=== PATIENT | male | born 2000 | race Caucasian/White ===

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

== ENCOUNTER 2021-08-10 17:17 | Emergency (ER) | payer OTHER ==
[~2021-08-10] VITALS: Ht 177.8 cm; Wt 79.8 kg
[2021-08-10] MEDS ORDERED: ABILIFY5 MG PO (17:27)
[2021-08-10] MEDS ORDERED: CEPH500 PO (17:27)
[2021-08-10] MEDS ORDERED: RISP1 PO (17:27)
== END 2021-08-10 17:28 | disposition home or self-care (01) ==
LOC: ER 17:17
DX: S20.372A Other superficial bite of left front wall of thorax, initial encounter (principal); W57.XXXA Bitten or stung by nonvenomous insect and other nonvenomous arthropods, initial encounter; F17.200 Nicotine dependence, unspecified, uncomplicated; Z79.899 Other long term (current) drug therapy
CPT/HCPCS: 99282

== ENCOUNTER 2022-08-19 18:14 | Emergency (ER) | payer OTHER ==
[~2022-08-19] VITALS: Ht 175.3 cm; Wt 66.7 kg
[~2022-08-19 18:14] MED LIST changes: +ABILIFY5 MG PO; +RISP1 PO
[2022-08-19 18:20] VITALS: BP 119/69
== END 2022-08-19 18:34 | disposition home or self-care (01) ==
LOC: ER 18:14
DX: S01.01XA Laceration without foreign body of scalp, initial encounter (principal); F17.210 Nicotine dependence, cigarettes, uncomplicated; W18.09XA Striking against other object with subsequent fall, initial encounter; Z79.899 Other long term (current) drug therapy
CPT/HCPCS: 12001; 99283-25

== ENCOUNTER 2022-09-18 16:41 | Emergency (ER) | payer OTHER ==
[~2022-09-18] VITALS: Ht 175.3 cm; Wt 60.8 kg
[2022-09-18 16:44] VITALS: BP 127/75
== END 2022-09-18 18:12 | disposition home or self-care (01) ==
LOC: ER 16:41
DX: S00.01XA Abrasion of scalp, initial encounter (principal); E86.0 Dehydration; F17.210 Nicotine dependence, cigarettes, uncomplicated; W18.30XA Fall on same level, unspecified, initial encounter
CPT/HCPCS: 99282

== ENCOUNTER 2022-12-08 06:48 | Observation (INO) | payer OTHER ==
[~2022-12-08] VITALS: Ht 177.8 cm; Wt 60.8 kg
[2022-12-08 08:09] LABS: BASOPHILS ABSOLUTE AUTO 0.01 K/mm3 (0.00-0.23); BASOPHILS PERCENT AUTO 0 % (0-2); EOSINOPHILS ABSOLUTE AUTO 0.02 K/mm3 (0.00-0.68); EOSINOPHILS PERCENT AUTO 0 % (0-6); Hematocrit 39.3 % (37.0-53.0); Hemoglobin 13.5 g/dL (13.5-17.5); IMMATURE GRAN ABSOLUTE AUTO 0.04 K/mm3 (0.00-0.10); IMMATURE GRAN PERCENT AUTO 0 % (0-1); LYMPHOCYTES ABSOLUTE AUTO 3.25 K/mm3 (0.84-5.20); LYMPHOCYTES PERCENT AUTO 25 % (21-46); MONOCYTES ABSOLUTE AUTO 1.13 K/mm3 (0.16-1.47); MONOCYTES PERCENT AUTO 9 % (4-13); Mean Corpuscular HGB 29.9 pg (26.0-34.0); Mean Corpuscular HGB Conc 34.4 g/dL (31.5-36.5); Mean Corpuscular Volume 87 fL (80-100); Mean Platelet Volume 11.6 fL (9.1-12.4); NEUTROPHILS ABSOLUTE AUTO 8.66 K/mm3 (1.96-9.15); NEUTROPHILS PERCENT AUTO 66 % (41-73); Platelet Count 190 K/mm3 (150-400); RDW Coefficient Variation 12.5 % (11.7-14.2); RDW Standard Deviation 39.8 fL (35.1-46.3); Red Blood Cell Count 4.51 M/mm3 (4.30-5.90); White Blood Cell Count 13.11 K/mm3 (4.00-11.30)
[2022-12-08] MEDS ORDERED: SERT100 (08:10)
[2022-12-08 08:11] LABS: Source, Urine Clean Catch
[2022-12-08 08:15] LABS: Appearance, Urine Cloudy (Clear); Bilirubin, Urine Neg (Neg); Blood, Urine Neg (Neg); Color, Urine Yellow (P-Yellow); Glucose Qualitative, Urine Neg (Neg); Ketones, Urine Neg (Neg); Leukocyte Esterase, Urine Neg (Neg); Nitrite, Urine Neg (Neg); Protein, Urine 1+ (Neg); Specific Gravity, Urine 1.015 (1.003-1.022); Urobilinogen, Urine 1+ (Normal); pH, Urine 6.5 (5.0-8.0)
[2022-12-08 08:29] LABS: U Amphetamine Screen DETECTED; U Barbituate Screen Not Detected; U Benzodiazapine Screen Not Detected; U Buprenorphine Screen Not Detected; U Cannabinoids Screen DETECTED; U Cocaine Screen Not Detected; U Methadone Screen Not Detected; U Methamphetamine Screen DETECTED; U Opiates Screen Not Detected; U Oxycodone Screen Not Detected; U Phencyclidine Screen Not Detected; U Propoxyphene Screen Not Detected
[2022-12-08 08:35] LABS: Mucus Light (0-Heavy)
[2022-12-08 08:36] LABS: Amorphous Heavy (0-Heavy); Bacteria Rare /hpf; Red Blood Cells, Urine 0-2 /hpf (0-2); Squamous Epithelial Cells Not Seen /hpf (Few); White Blood Cells, Urine 0-2 /hpf (0-5)
[2022-12-08 08:37] LABS: Yeast/Fungi Urine Rare /hpf
[2022-12-08 08:51] LABS: Ethanol (Alcohol), Blood, Med <3 mg/dL; Salicylate 2.5 mg/dL (2.8-20.0)
[2022-12-08 08:56] LABS: Alanine Aminotransfer (ALT/SGP 29 U/L (12-78); Albumin, Blood 4.3 g/dL (3.4-5.0); Albumin/Globulin Ratio 1.3 (0.8-1.8); Alk Phos 108 U/L (50-136); Anion Gap 3 mmol/L (6-16); Aspartate Aminotrans (AST/SGOT 32 U/L (12-37); Bilirubin, Total 0.6 mg/dL (0.1-1.0); Blood Urea Nitrogen 15 mg/dL (8-24); Bun/Creatinine Ratio 17.1 (12.0-20.0); CO2, Blood 30 mmol/L (21-32); Calcium, Blood 9.1 mg/dL (8.5-10.1); Chloride, Blood 107 mmol/L (98-108); Creatinine, Blood 0.88 mg/dL (0.60-1.20); Globulin, Blood 3.2 g/dL (2.2-4.0); Glomerular Filtration Rate 125 (60-); Glucose, Blood 102 mg/dL (70-99); Potassium, Blood 3.9 mmol/L (3.5-5.5); Sodium, Blood 140 mmol/L (136-145); Total Protein, Blood 7.5 g/dL (6.4-8.2)
[2022-12-08 08:57] LABS: Acetaminophen, Random <2.0 ug/mL (10.0-30.0)
[2022-12-08 14:12] LABS: Influenza A, PCR NEGATIVE (NEGATIVE); Influenza B, PCR NEGATIVE (NEGATIVE); Resp Syncytial Virus, PCR NEGATIVE (NEGATIVE); SARS-Cov-2 (COVID-19) PCR, MMC NEGATIVE (NEGATIVE)
[2022-12-11] MEDS ORDERED: SERT50 PO (10:21)
[2022-12-11] MEDS ORDERED: RISP2 PO (10:21)
[2022-12-11] MEDS ORDERED: HYDHCL25 PO (10:22)
[2022-12-11 10:24] VITALS: BP 108/71
== END 2022-12-11 07:54 | disposition home or self-care (01) ==
LOC: ER 06:48 → EOR 06:49
PROVIDERS: Student in an Organized Health Care Education/Training Program; ADMIT Emergency Medicine
DX: F20.0 Paranoid schizophrenia (principal); F15.10 Other stimulant abuse, uncomplicated; F12.10 Cannabis abuse, uncomplicated; R45.851 Suicidal ideations; F17.210 Nicotine dependence, cigarettes, uncomplicated
CPT/HCPCS: 0241U; 80053; 81001; 84436; 84443; 85025; 86592; 99285-25; A9270; G0378; G0480

== ENCOUNTER 2023-02-20 14:20 | Emergency (ER) | payer OTHER ==
[~2023-02-20] VITALS: Ht 177.8 cm; Wt 68.0 kg
[~2023-02-20 14:20] MED LIST changes: +HYDHCL25 PO; +RISP2 PO; +SERT100; +SERT50 PO
[2023-02-20 16:45] VITALS: BP 123/75
[2023-02-20] MEDS ORDERED: Percocet 5-3251 EACH PO (17:12)
[2023-02-20] MEDS ORDERED: Cephalexin500 M1 PO (17:12)
== END 2023-02-20 17:23 | disposition home or self-care (01) ==
LOC: ER 14:20
DX: S61.442A Puncture wound with foreign body of left hand, initial encounter (principal); S62.623B Displaced fracture of middle phalanx of left middle finger, initial encounter for open fracture; S62.633B Displaced fracture of distal phalanx of left middle finger, initial encounter for open fracture; F20.9 Schizophrenia, unspecified; F90.9 Attention-deficit hyperactivity disorder, unspecified type; F31.9 Bipolar disorder, unspecified; F17.210 Nicotine dependence, cigarettes, uncomplicated; Z79.899 Other long term (current) drug therapy; W34.00XA Accidental discharge from unspecified firearms or gun, initial encounter
CPT/HCPCS: 29125; 73130; 90471; 90714; 96365-59; 96375-59; 99285-25; J0690; J2405; J3010

== ENCOUNTER 2024-05-15 23:27 | Emergency (ER) | payer OTHER ==
[~2024-05-15] VITALS: Ht 175.3 cm; Wt 70.3 kg
[~2024-05-15 23:27] MED LIST changes: +Cephalexin500 M1 PO; +Percocet 5-3251 EACH PO
[2024-05-15 23:48] VITALS: BP 121/54
[2024-05-16] MEDS ORDERED: Pantoprazole Sodium 40 MG Tab PO ONE (00:05)
[2024-05-16] MEDS ORDERED: Protonix40 MG PO (00:25)
== END 2024-05-16 00:37 | disposition home or self-care (01) ==
LOC: ER 23:27
DX: K21.9 Gastro-esophageal reflux disease without esophagitis (principal); H53.8 Other visual disturbances; Z79.2 Long term (current) use of antibiotics; Z79.899 Other long term (current) drug therapy; Z87.891 Personal history of nicotine dependence
CPT/HCPCS: 71045; 82947; 99284-25; A9270

== ENCOUNTER 2024-05-19 20:48 | Emergency (ER) | payer OTHER ==
[~2024-05-19] VITALS: Ht 177.8 cm; Wt 66.2 kg
[~2024-05-19 20:48] MED LIST changes: +Protonix40 MG PO
[2024-05-19 21:27] VITALS: BP 117/75
== END 2024-05-20 | disposition left against medical advice (07) ==
LOC: ER 20:48
DX: R07.81 Pleurodynia (principal); Z53.21 Procedure and treatment not carried out due to patient leaving prior to being seen by health care provider
CPT/HCPCS: 71046; 99281-25

== ENCOUNTER → 2024-05-31 | Outpatient (CLI) | payer OTHER ==
[2024-05-31 17:22] LABS: BASOPHILS ABSOLUTE AUTO 0.02 K/mm3 (0.00-0.23); BASOPHILS PERCENT AUTO 0 % (0-2); EOSINOPHILS ABSOLUTE AUTO 0.01 K/mm3 (0.00-0.68); EOSINOPHILS PERCENT AUTO 0 % (0-6); Hematocrit 40.7 % (37.0-53.0); Hemoglobin 13.5 g/dL (13.5-17.5); IMMATURE GRAN ABSOLUTE AUTO 0.01 K/mm3 (0.00-0.10); IMMATURE GRAN PERCENT AUTO 0 % (0-1); LYMPHOCYTES ABSOLUTE AUTO 1.88 K/mm3 (0.84-5.20); LYMPHOCYTES PERCENT AUTO 34 % (21-46); MONOCYTES ABSOLUTE AUTO 0.31 K/mm3 (0.16-1.47); MONOCYTES PERCENT AUTO 6 % (4-13); Mean Corpuscular HGB 28.7 pg (26.0-34.0); Mean Corpuscular HGB Conc 33.2 g/dL (31.5-36.5); Mean Corpuscular Volume 87 fL (80-100); Mean Platelet Volume 11.2 fL (9.1-12.4); NEUTROPHILS ABSOLUTE AUTO 3.34 K/mm3 (1.96-9.15); NEUTROPHILS PERCENT AUTO 60 % (41-73); Platelet Count 272 K/mm3 (150-400); RDW Standard Deviation 40.9 fL (35.1-46.3); White Blood Cell Count 5.57 K/mm3 (4.00-11.30)
[2024-05-31 18:43] LABS: Chlamydia Trachomatis Urine NOT DETECTED (NOT DETECT); Neisseria Gonorrhoea Urine NOT DETECTED (NOT DETECT)
[2024-05-31 19:34] LABS: Alanine Aminotransfer (ALT/SGP 23 U/L (12-78); Albumin, Blood 4.3 g/dL (3.4-5.0); Albumin/Globulin Ratio 1.3 (0.8-1.8); Alk Phos 74 U/L (50-136); Anion Gap 9 mmol/L (3-11); Aspartate Aminotrans (AST/SGOT 17 U/L (12-37); Bilirubin, Total 0.8 mg/dL (0.1-1.0); Blood Urea Nitrogen 11 mg/dL (8-24); CHOL/HDL RATIO 2.9; CO2, Blood 27 mmol/L (21-32); Calcium, Blood 9.4 mg/dL (8.5-10.1); Chloride, Blood 105 mmol/L (98-108); Cholesterol 160 mg/dL (50-200); Globulin, Blood 3.3 g/dL (2.2-4.0); Glucose, Blood 91 mg/dL (70-99); HDL Cholesterol 55 mg/dL (>39); Iron Serum 97 ug/dL (65-175); LDL/HDL RATIO 1.6; Low Density Lipoprotein Chol 90 mg/dL (0-110); PSA, %Free 16.4 %; PSA, Free 0.096 ng/mL; Percent Saturation 28.6 % (20.0-50.0); Potassium, Blood 4.2 mmol/L (3.5-5.5); Prostate Specific Antigen 0.584 ng/mL (0.000-4.000); Sodium, Blood 137 mmol/L (136-145); Total Iron Binding Capacity 339 ug/dL (250-450); Total Protein, Blood 7.6 g/dL (6.4-8.2); Triglycerides 75 mg/dL (30-140); Very Low Density Lipoprot Chol 15 mg/dL (6-28)
[2024-05-31 19:38] LABS: Bun/Creatinine Ratio 14.7 (12.0-20.0); Creatinine, Blood 0.75 mg/dL (0.60-1.20); Glomerular Filtration Rate 131 (60-); Thyroid Stimulating Hormone 0.787 uIU/mL (0.360-4.800)
[2024-06-02 09:57] LABS: HEPATITIS C AB CIA INTERP Negative (Negative); HEPATITIS C ANTIBODY CIA INDEX 0.06 IV
[2024-06-02 10:04] LABS: HIV 1,2 COMBO ANTIGEN/ANTIBODY Negative (Negative)
== END ==
LOC: LAB SHORT 12:10 → LAB 12:10
PROVIDERS: Nurse Practitioner Family
DX: Z11.3 Encounter for screening for infections with a predominantly sexual mode of transmission (principal); Z11.4 Encounter for screening for human immunodeficiency virus [HIV]; Z11.59 Encounter for screening for other viral diseases; R16.1 Splenomegaly, not elsewhere classified; Z79.899 Other long term (current) drug therapy
CPT/HCPCS: 80053; 80061; 82306; 83036; 83540; 83550; 84153; 84154; 84443; 85025; 86592; 86803; 87389; 87491; 87591

== ENCOUNTER 2024-09-05 02:15 | Observation (INO) | payer OTHER ==
[~2024-09-05] VITALS: Ht 172.7 cm; Wt 68.0 kg
[2024-09-05 03:12] LABS: BASOPHILS ABSOLUTE AUTO 0.04 K/mm3 (0.00-0.23); BASOPHILS PERCENT AUTO 1 % (0-2); EOSINOPHILS PERCENT AUTO 1 % (0-6); Hematocrit 38.4 % (37.0-53.0); Hemoglobin 12.8 g/dL (13.5-17.5); IMMATURE GRAN ABSOLUTE AUTO 0.01 K/mm3 (0.00-0.10); IMMATURE GRAN PERCENT AUTO 0 % (0-1); LYMPHOCYTES ABSOLUTE AUTO 3.36 K/mm3 (0.84-5.20); LYMPHOCYTES PERCENT AUTO 42 % (21-46); MONOCYTES ABSOLUTE AUTO 0.65 K/mm3 (0.16-1.47); MONOCYTES PERCENT AUTO 8 % (4-13); Mean Corpuscular HGB 29.2 pg (26.0-34.0); Mean Corpuscular HGB Conc 33.3 g/dL (31.5-36.5); Mean Corpuscular Volume 88 fL (80-100); Mean Platelet Volume 10.6 fL (9.1-12.4); NEUTROPHILS PERCENT AUTO 48 % (41-73); Platelet Count 232 K/mm3 (150-400); RDW Coefficient Variation 13.1 % (11.7-14.2); RDW Standard Deviation 41.9 fL (35.1-46.3); Red Blood Cell Count 4.38 M/mm3 (4.30-5.90); White Blood Cell Count 7.96 K/mm3 (4.00-11.30)
[2024-09-05 03:30] LABS: Ethanol (Alcohol), Blood, Med <3 mg/dL; Salicylate <1.7 mg/dL (2.8-20.0)
[2024-09-05 03:31] LABS: Alanine Aminotransfer (ALT/SGP 27 U/L (12-78); Albumin, Blood 4.3 g/dL (3.4-5.0); Albumin/Globulin Ratio 1.3 (0.8-1.8); Alk Phos 82 U/L (50-136); Anion Gap 7 mmol/L (3-11); Aspartate Aminotrans (AST/SGOT 25 U/L (12-37); Bilirubin, Total 0.6 mg/dL (0.1-1.0); Blood Urea Nitrogen 16 mg/dL (8-24); Bun/Creatinine Ratio 18.9 (12.0-20.0); CO2, Blood 29 mmol/L (21-32); Calcium, Blood 9.1 mg/dL (8.5-10.1); Chloride, Blood 103 mmol/L (98-108); Creatinine, Blood 0.85 mg/dL (0.60-1.20); Globulin, Blood 3.4 g/dL (2.2-4.0); Glomerular Filtration Rate 126 (60-); Glucose, Blood 95 mg/dL (70-99); Potassium, Blood 3.7 mmol/L (3.5-5.5); Sodium, Blood 135 mmol/L (136-145); Total Protein, Blood 7.7 g/dL (6.4-8.2)
[2024-09-05 03:36] LABS: Acetaminophen, Random <2.0 ug/mL (10.0-30.0)
[2024-09-05] MEDS ORDERED: OLANZapine 5 MG Tab PO ONE (04:00)
[2024-09-05 04:56] LABS: Source, Urine Clean Catch
[2024-09-05 05:03] LABS: Bilirubin, Urine Neg (Neg); Blood, Urine Neg (Neg); Glucose Qualitative, Urine Neg (Neg); Ketones, Urine Neg (Neg); Leukocyte Esterase, Urine Neg (Neg); Nitrite, Urine Neg (Neg); Protein, Urine Neg (Neg); Urobilinogen, Urine NORM (Normal)
[2024-09-05 05:18] LABS: Appearance, Urine Clear (Clear); Color, Urine Yellow (P-Yellow)
[2024-09-05 05:20] LABS: U Amphetamine Screen DETECTED; U Barbituate Screen Not Detected; U Benzodiazapine Screen Not Detected; U Buprenorphine Screen Not Detected; U Cannabinoids Screen DETECTED; U Cocaine Screen Not Detected; U Methadone Screen Not Detected; U Methamphetamine Screen DETECTED; U Opiates Screen Not Detected; U Oxycodone Screen Not Detected; U Phencyclidine Screen Not Detected
[2024-09-05 13:28] VITALS: BP 135/65
== END 2024-09-05 14:52 | disposition other institution (70) ==
LOC: ER 02:15 → EOR 02:16
PROVIDERS: ADMIT Emergency Medicine
DX: R45.851 Suicidal ideations (principal); F25.0 Schizoaffective disorder, bipolar type; F19.10 Other psychoactive substance abuse, uncomplicated; F17.200 Nicotine dependence, unspecified, uncomplicated; Z59.00 Homelessness unspecified
CPT/HCPCS: 36415; 80053; 80320; 81003; 85025; 99285; A9270; G0378; G0480

== ENCOUNTER 2024-09-05 09:54 | Inpatient (IN) | payer OTHER ==
[~2024-09-05] VITALS: Wt 62.7 kg
[2024-09-05] MEDS ORDERED: Polyethylene Glycol 3350 17 gm PO PRN (10:45)
[2024-09-05] MEDS ORDERED: Aluminum Hydroxide 320MG/5ML 473 ML PO PRN (10:45)
[2024-09-05] MEDS ORDERED: Ondansetron 4 MG SoluTab MM PRN (10:45)
[2024-09-05 15:41] VITALS: BP 106/78
[2024-09-05 16:22] VITALS: BP 106/78
--- NOTE | 2024-09-05 16:45 | NUR ---
MASTER TREATMENT PLAN REVIEWED MASTER TREATMENT PLAN W/ PT, PT VISUALLY LAID EYES ON PLAN. SIGNATURE AT END W/ OK FROM PT.
--- NOTE | 2024-09-05 17:29 | NUR ---
SHIFT SUMMARY PT DENIES SI, HI, AVTH. STATED THAT HE HAS NOT FELT ANY SI SINCE ED. PT UPSET D/T BEING ON A HOLD, BUT WAS REDIRECTABLE. PLEASANT AND COOPERATIVE. DISCUSSED W/ PT HOW THIS STAY MAY BE BENEFICIAL AND PT APPEARED TO BE INTO THE IDEA OF STAYING LONG DR RECOMMENDS. PT STATES THAT THIS RECENT EVENT'S SI WAS NOT D/T HIM WANTING TO , BUT WERE "INTRUSIVE THOUGHTS". PT SLEEPING/RESTING QUIETLY AT THIS TIME.
--- NOTE | 2024-09-06 05:58 | NUR ---
SHIFT SUMMARY Pt was asleep in bed at the beginning of the shirt. During HS med pass, real estate underwriter conducted a limited assessment. Pt is A&O, calm, minimally cooperative with assessment, eye contact is limited. Pt denies SI and HI. No S/Sx of hallucinations. Pt appears very depressed, affect is blunted. Pt reported no pain. Pt did ask for PRN melatonin and trazodone during HS med pass. Pt refused evening snack and remained in room for the entire shift. Staff continues q15m safety check per unit protocol.
[2024-09-06 08:23] LABS: CHOL/HDL RATIO 2.3; Cholesterol 122 mg/dL (50-200); HDL Cholesterol 54 mg/dL (>39); LDL/HDL RATIO 1.1; Low Density Lipoprotein Chol 57 mg/dL (0-110); Triglycerides 55 mg/dL (30-140); Very Low Density Lipoprot Chol 11 mg/dL (6-28)
[2024-09-06 08:51] VITALS: BP 112/69
[2024-09-06] MEDS ORDERED: Multivitamins 1 Tab PO SCH (09:00)
--- NOTE | 2024-09-06 12:06 | NUR ---
PT ALERT, ORIENTED AND COOPERATIVE WITH CARE. COMPLIANT WITH MEDICATIONS. PT DENIES SI, HI AND AVH. PT STATES, "I'M NOT SUICIDAL, I AM READY TO GO HOME". DISCUSSED PATIENTS HOLD STATUS AND ENCOURAGED PT TO SPEAK WITH PROVIDER ABOUT HIS REQUEST TO GO HOME.
--- NOTE | 2024-09-06 17:21 | NUR ---
SHIFT SUMMARY: NO ACUTE CHANGES THIS SHIFT. PT COMPLIANT WITH MEDICATIONS AND CARE. PT WAS PRESENT ON THE UNIT. SPENT TIME IN THE DAY ROOM WATCHING TV, TALKING WITH PEERS AND STAFF.
[2024-09-06 20:33] VITALS: BP 102/61
--- NOTE | 2024-09-07 06:12 | NUR ---
SHIFT SUMMARY Pt is A&O, calm, cooperative, eye contact was limited. Pt s stated mood is okay but appears depressed, affect is flat. Pt denies SI, HI, and hallucinations. Pt also denies pain or other medical issues. Pt remained in his room for most of the evening, but did come the dining room for evening snack. PRN melatonin and trazodone were given with HS meds. Staff continues q15m safety check per unit protocol.
[2024-09-07 07:17] VITALS: BP 101/62
--- NOTE | 2024-09-07 17:18 | NUR ---
SHIFT SUMMARY PT A/O X4; DENIES SI, HI, AVTH. PT NEEDS ENCOURAGEMENT TO ATTEND GROUP BUT DID ATTEND WHEN REMINDED. NO ACUTE CHANGES THIS SHIFT. HE CONTINUES TO BE MONITORED VIA Q15 ROUNDING FOR SAFETY AND WELLNESS.
[2024-09-07 20:37] VITALS: BP 107/68
--- NOTE | 2024-09-08 04:32 | NUR ---
SHIFT SUMMARY PT IN BED AT START OF SHIFT, AWAKES EASILY. HE APPEARS GUARDED WITH A DEPRESSED AND BLUNTED AFFECT. HE DENIES ANY SI, HI, THOUGHTS OF SELF HARM OR AVTH. HE HAD EVENING SNACK, WAS COMPLIANT WITH MEDICATIONS AND RECEIVED PRN TRAZODONE AND MELATONIN. HE HAS REMAINED IN BED THROUGHOUT THE NIGHT. Q15 MINUTE CHECKS TO CONITNUE BY STAFF PER PT SAFETY/UNIT PROTOCOL.
[2024-09-08 08:16] VITALS: BP 97/64
--- NOTE | 2024-09-08 14:57 | NUR ---
IMPORTANT DISCHARGE INFORMATION PATIENT TO BE DISCHARGED ON 09/09/24 AT 2PM VIA [facility] . HE WILL BE DROPPED OFF AT [facility] LOC[facility]. HE HAS DECLINED RETIREMENT AT THIS TIME. THE [facility] WILL PROVIDE CAMPING EQUIPMENT. ALL PARTIES VERBALIZE AN UNDERSTANDING. FOLLOW UP PCP APPOINTMENT WITH MONTY BREAUX ON 09/13/24 AT 2:50PM, [facility]. PHARMACY: [phone]
--- NOTE | 2024-09-08 18:35 | NUR ---
SHIFT SUMMARY PT A/O X4; DENIES SI, HI, AVTH. PT REPORTS THAT HE IS DOING MUCH BETTER. HIS AFFECT IS FLAT AND THE PT IS SOMEWHAT GUARDED. PT REPORTS THAT HE LIKES TO BE ALONE AND IS REALLY CONTENT HANGING OUT IN HIS ROOM. PT TO GET HIS SECOND INVEGA INJECTION AND WILL DC AFTERWARD.
[2024-09-08 20:53] VITALS: BP 102/66
--- NOTE | 2024-09-09 04:22 | NUR ---
SHIFT SUMMARY PT LAYING IN BED AWAKE AT START OF SHIFT. HE DENIES ANY SI, HI, THOUGHTS OF SELF HARM OR AVTH. HE STATES HE FEELS READY FOR DISCHARGE. HE HAD EVENING SNACK, WAS COMPLIANT WITH MEDS. RECEIVED PRN TRAZODONE AND MELATONIN AND WENT BACK TO BED. HE HAS REMAINED IN BED THROUGHOUT THE NIGHT. Q15 MINUTE CHECKS TO CONITNUE PER UNIT PROTOCOL.
[2024-09-09 08:43] VITALS: BP 113/67
--- NOTE | 2024-09-09 09:14 | NUR ---
Invega injection administered in left deltoid this morning. Patient tolerated well. Resting in bed at this time
[2024-09-09] MEDS ORDERED: MULVITA PO (10:12)
[2024-09-09] MEDS ORDERED: NICOTINE GUM2 M1 PO (10:13)
[2024-09-09] MEDS ORDERED: MELA3 PO (10:13)
[2024-09-09] MEDS ORDERED: TRAZ50 PO (10:14)
--- NOTE | 2024-09-09 14:02 | NUR ---
Patient discharged at 1411 this afternoon. He has his discharge packet, with education, follow up appointments and medical record information included. This magazine writer went over the information with him earlier today. 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 His belonings have been returned. Patient recieved his injection of Invega this morning, and a note on his discharge paperwork shows him when to anticipate having his next injection administered.
== END 2024-09-09 14:13 | disposition home or self-care (01) | DRG 885 ==
LOC: BHU 09:54
PROVIDERS: ADMIT Student in an Organized Health Care Education/Training Program
DX: F20.0 Paranoid schizophrenia (principal); F15.10 Other stimulant abuse, uncomplicated; Z56.0 Unemployment, unspecified; Z79.899 Other long term (current) drug therapy
CPT/HCPCS: 36415; 80061; 83036; A9270

== ENCOUNTER 2024-09-28 21:15 | Emergency (ER) | payer OTHER ==
[~2024-09-28] VITALS: Ht 180.3 cm; Wt 60.8 kg
[~2024-09-28 21:15] MED LIST changes: +MELA3 PO; +MULVITA PO; +NICOTINE GUM2 M1 PO; +TRAZ50 PO
[2024-09-28 21:39] VITALS: BP 152/79
[2024-09-28] MEDS ORDERED: Ketorolac Tromethamine 30mg Vial IM ONE (21:50)
[2024-09-28] MEDS ORDERED: FAMO20 PO (22:51)
[2024-09-28] MEDS ORDERED: AMOCLA875 PO (22:51)
[2024-09-28] MEDS ORDERED: IBUP600 PO (22:51)
[2024-09-29] MEDS ORDERED: Ibuprofen600 MG PO (03:35)
[2024-09-29] MEDS ORDERED: PENVK500 PO (03:35)
== END 2024-09-28 23:01 | disposition home or self-care (01) ==
LOC: ER 21:15
DX: K04.7 Periapical abscess without sinus (principal); F17.200 Nicotine dependence, unspecified, uncomplicated; Z79.899 Other long term (current) drug therapy
CPT/HCPCS: 87081; 87430; 96374; 99282-25; A9270; J1885

== ENCOUNTER 2024-09-29 02:00 | Emergency (ER) | payer OTHER ==
[~2024-09-29] VITALS: Ht 177.8 cm; Wt 60.8 kg
[~2024-09-29 02:00] MED LIST changes: +AMOCLA875 PO; +FAMO20 PO; +IBUP600 PO
[2024-09-29 02:22] VITALS: BP 133/91
[2024-09-29] MEDS ORDERED: PENVK500 PO (03:35)
[2024-09-29] MEDS ORDERED: Ibuprofen600 MG PO (03:35)
== END 2024-09-29 04:03 | disposition home or self-care (01) ==
LOC: ER 02:00
DX: K04.7 Periapical abscess without sinus (principal); G40.909 Epilepsy, unspecified, not intractable, without status epilepticus; F31.9 Bipolar disorder, unspecified; F17.200 Nicotine dependence, unspecified, uncomplicated; Z79.899 Other long term (current) drug therapy
CPT/HCPCS: 99282; A9270

== ENCOUNTER 2024-10-02 08:04 | Emergency (ER) | payer OTHER ==
[~2024-10-02] VITALS: Ht 175.3 cm; Wt 68.0 kg
[~2024-10-02 08:04] MED LIST changes: +Ibuprofen600 MG PO; +PENVK500 PO
[2024-10-02] MEDS ORDERED: NS 1,000 ML IV SCH (08:50)
[2024-10-02] MEDS ORDERED: Dexamethasone Sod Phos 10 MG/ML 1ML VIAL IV ONE (08:50)
[2024-10-02] MEDS ORDERED: DiphenhydrAMINE HCl 50 MG/ML 1ML Vial IV ONE (08:50)
[2024-10-02] MEDS ORDERED: Prochlorperazine Edisylate 10 mg Vial IV ONE (08:50)
[2024-10-02 09:10] LABS: BASOPHILS ABSOLUTE AUTO 0.03 K/mm3 (0.00-0.23); BASOPHILS PERCENT AUTO 1 % (0-2); EOSINOPHILS ABSOLUTE AUTO 0.06 K/mm3 (0.00-0.68); EOSINOPHILS PERCENT AUTO 1 % (0-6); Hematocrit 36.3 % (37.0-53.0); Hemoglobin 12.1 g/dL (13.5-17.5); IMMATURE GRAN ABSOLUTE AUTO 0.01 K/mm3 (0.00-0.10); IMMATURE GRAN PERCENT AUTO 0 % (0-1); LYMPHOCYTES ABSOLUTE AUTO 0.98 K/mm3 (0.84-5.20); LYMPHOCYTES PERCENT AUTO 16 % (21-46); MONOCYTES ABSOLUTE AUTO 0.90 K/mm3 (0.16-1.47); MONOCYTES PERCENT AUTO 15 % (4-13); Mean Corpuscular HGB Conc 33.3 g/dL (31.5-36.5); Mean Corpuscular Volume 88 fL (80-100); NEUTROPHILS ABSOLUTE AUTO 4.12 K/mm3 (1.96-9.15); NEUTROPHILS PERCENT AUTO 67 % (41-73); NRBC ABSOLUTE 0.00 K/mm3 (0.00-0.02); NRBC Auto 0.0 /100 WBC (0.0-0.2); Platelet Count 233 K/mm3 (150-400); RDW Coefficient Variation 13.1 % (11.7-14.2); RDW Standard Deviation 42.9 fL (35.1-46.3)
[2024-10-02 09:21] LABS: Anion Gap 7.0 mmol/L (3-11); Blood Urea Nitrogen 13.0 mg/dL (8-24); CO2, Blood 27.0 mmol/L (21-32); Calcium, Blood 8.9 mg/dL (8.5-10.1); Chloride, Blood 103.0 mmol/L (98-108); Creatinine, Blood 0.77 mg/dL (0.60-1.20); Glucose, Blood 108.0 mg/dL (70-99); Potassium, Blood 4.0 mmol/L (3.5-5.5); Sodium, Blood 133.0 mmol/L (136-145)
[2024-10-02 10:00] LABS: Prothrombin Time Results 10.6 Sec (9.7-11.5)
[2024-10-02 11:33] VITALS: BP 99/64
== END 2024-10-02 13:11 | disposition home or self-care (01) ==
LOC: ER 08:04
PROVIDERS: Student in an Organized Health Care Education/Training Program
DX: K05.30 Chronic periodontitis, unspecified (principal); R51.9 Headache, unspecified; F17.200 Nicotine dependence, unspecified, uncomplicated; Z79.899 Other long term (current) drug therapy
CPT/HCPCS: 70450; 80048; 85025; 85610; 85730; 96361; 96374; 96375; 99284-25; A9270; J0780; J1100; J1200; J7030

== ENCOUNTER → 2024-12-30 | Outpatient (CLI) | payer OTHER ==
[2024-12-30 19:21] LABS: CHOL/HDL RATIO 2.2; Cholesterol 126 mg/dL (50-200); HDL Cholesterol 56 mg/dL (>39); LDL/HDL RATIO 1.1; Low Density Lipoprotein Chol 59 mg/dL (0-110); Triglycerides 55 mg/dL (30-140); Very Low Density Lipoprot Chol 11 mg/dL (6-28)
== END ==
LOC: LAB SHORT 16:24 → LAB 16:24
PROVIDERS: Registered Nurse
DX: Z79.899 Other long term (current) drug therapy (principal)
CPT/HCPCS: 80061; 83036

== ENCOUNTER 2025-01-19 02:07 | Emergency (ER) | payer OTHER ==
[~2025-01-19] VITALS: Ht 180.3 cm; Wt 68.0 kg
[2025-01-19 02:20] VITALS: BP 111/78
[2025-01-19] MEDS ORDERED: PALI6TA (02:23)
[2025-01-19] MEDS ORDERED: AMOCLA875 PO (02:31)
[2025-01-21] MEDS ORDERED: IBUP800 PO (18:09)
== END 2025-01-19 02:37 | disposition home or self-care (01) ==
LOC: ER 02:07
DX: K04.7 Periapical abscess without sinus (principal); F17.200 Nicotine dependence, unspecified, uncomplicated; Z79.899 Other long term (current) drug therapy
CPT/HCPCS: 99283; A9270

== ENCOUNTER 2025-01-21 15:57 | Emergency (ER) | payer OTHER | END 2025-01-21 18:13 | disposition home or self-care (01) | LOC: ER 15:57 | DX: J02.9 Acute pharyngitis, unspecified (principal); F17.200 Nicotine dependence, unspecified, uncomplicated; Z79.2 Long term (current) use of antibiotics; Z59.89 Other problems related to housing and economic circumstances ==

== ENCOUNTER 2025-01-25 21:41 | Emergency (ER) | payer OTHER ==
[~2025-01-25] VITALS: Ht 180.3 cm; Wt 74.4 kg
[~2025-01-25 21:41] MED LIST changes: +IBUP800 PO; +PALI6TA
[2025-01-25] MEDS ORDERED: Albuterol 2.5 MG/3 ML VIAL INH ONE (22:05)
[2025-01-25] MEDS ORDERED: ALBU90OI INH (22:54)
[2025-01-25 23:09] VITALS: BP 115/68
== END 2025-01-25 23:10 | disposition home or self-care (01) ==
LOC: ER 21:41
DX: R06.00 Dyspnea, unspecified (principal); G40.909 Epilepsy, unspecified, not intractable, without status epilepticus; F20.9 Schizophrenia, unspecified; F17.210 Nicotine dependence, cigarettes, uncomplicated; Z79.899 Other long term (current) drug therapy
CPT/HCPCS: 71045; 93005; 93010; 99284-25

== ENCOUNTER 2025-02-07 22:17 | Emergency (ER) | payer OTHER ==
[~2025-02-07] VITALS: Ht 177.8 cm; Wt 65.8 kg
[2025-02-07 22:50] VITALS: BP 125/81
== END 2025-02-08 00:27 | disposition home or self-care (01) ==
LOC: ER 22:17
DX: R07.89 Other chest pain (principal); F17.210 Nicotine dependence, cigarettes, uncomplicated; F17.290 Nicotine dependence, other tobacco product, uncomplicated; Z79.899 Other long term (current) drug therapy
CPT/HCPCS: 99282